=== PATIENT | female | born 1970 | race Caucasian/White ===

== ENCOUNTER → 2022-08-28 | Outpatient (CLI) | payer OTHER ==
[~2022-08-28] MED LIST: BACLOFEN20 M1 PO; BACTROBAN OINT22 GM PO; DARVOCET N 1001 TAB PO; DAYPRO600 M1 PO; KEFLEX500 MG PO; LEADER NATUR1000 MCG PO; LEVETIRACETAM500 MG PO; MACROBID100 M1 PO; Mysoline50 MG PO; NATURE'S BLEND F1 MG PO; VITAMIN D5000 UNI1 PO
== END | disposition home or self-care (01) ==
LOC: US 01:16
PROVIDERS: ATTEND Internal Medicine
DX: N64.4 Mastodynia (principal)

== ENCOUNTER 2023-04-06 11:21 | Emergency (ER) | payer OTHER | END 2023-04-06 12:46 | disposition home or self-care (01) | LOC: ED 11:21 | DX: U07.1 COVID-19 (principal); F32.A Depression, unspecified; Z88.2 Allergy status to sulfonamides; Z88.8 Allergy status to other drugs, medicaments and biological substances; Z98.51 Tubal ligation status ==

== ENCOUNTER 2023-11-30 12:11 | Emergency (ER) | payer OTHER ==
[~2023-11-30] VITALS: Ht 152.4 cm; Wt 65.8 kg
[2023-11-30] MEDS ORDERED: Cyclobenzaprine Hydrochlorid 10 MG TAB PO ONE (13:10)
[2023-11-30 16:13] LABS: BILIRUBIN 2+ (Negative); BLOOD 2+ (Negative); CLARITY Clear (Clear); COLOR Orange (Yellow); GLUCOSE Negative (Negative); KETONE 3+ (Negative); LEUKO ESTERASE Trace (Negative); NITRITE Positive (Negative); PH 5.5 (4.5-8.0); SPECIFIC GRAVITY >= 1.030 (1.001-1.030)
[2023-11-30 16:26] LABS: BACTERIA 2+; EPITHELIAL CELLS 0-2; RBC 16-20 rbc/hpf (0-2)
[2023-11-30] MEDS ORDERED: CYCLOBENZAPRINE5 M3 PO (16:35)
[2023-11-30] MEDS ORDERED: CIPRO500 MG PO (16:35)
== END 2023-11-30 17:04 | disposition home or self-care (01) ==
LOC: ED 12:11
PROVIDERS: Internal Medicine
DX: N39.0 Urinary tract infection, site not specified (principal); M62.838 Other muscle spasm; F32.A Depression, unspecified; Z88.2 Allergy status to sulfonamides; Z88.8 Allergy status to other drugs, medicaments and biological substances; Z98.51 Tubal ligation status; Z53.29 Procedure and treatment not carried out because of patient's decision for other reasons

== ENCOUNTER 2025-01-01 19:55 | Emergency (ER) | payer OTHER ==
[~2025-01-01 19:55] MED LIST changes: +CIPRO500 MG PO; +CYCLOBENZAPRINE5 M3 PO
[2025-01-01 20:25] LABS: BASO # 0.0 10*3/uL (0.0-0.1); BASO % 0.4 % (0.0-1.0); EOS # 0.2 10*3/uL (0.0-0.4); EOS % 2.3 % (1.0-4.0); MEAN CELL VOLUME 87.9 fl (81.0-99.0); MEAN CORPUSCULAR HGB 27.5 pg (27.0-31.0); MEAN PLATELET VOLUME 10.9 fl (9.6-12.3); MONO # 0.4 10*3/uL (0.1-1.0); MONO % 6.1 % (3.0-9.0); NEUT # 4.9 10*3/uL (2.3-7.9); NEUT % 69.3 % (47.0-73.0); NUCLEATED RED BLOOD CELL 0.0 % (0.0-0.0); NUCLEATED RED BLOOD CELL 0.0 10*3/uL (0.0-0.0); PLATELET COUNT AUTOMATED 226 10*3/uL (130-400); RED CELL DISTRI WIDTH 14.6 % (0-14.5)
[2025-01-01 20:49] LABS: BUN 11 mg/dl (9-23)
[2025-01-01 21:09] LABS: BILIRUBIN Negative (Negative); BLOOD Negative (Negative); CLARITY Clear (Clear); COLOR Yellow (Yellow); KETONE Trace (Negative); LEUKO ESTERASE Negative (Negative); NITRITE Negative (Negative); PH 6.5 (4.5-8.0); SPECIFIC GRAVITY 1.020 (1.001-1.030); UROBILINOGEN 1.0 E.U./dl (0.0-1.0)
[2025-01-01 21:33] LABS: WBC 0-2 wbc/hpf (0-5)
== END 2025-01-01 22:15 | disposition home or self-care (01) ==
LOC: ED 19:55
PROVIDERS: Internal Medicine
DX: S31.000A Unspecified open wound of lower back and pelvis without penetration into retroperitoneum, initial encounter (principal); F32.A Depression, unspecified; Z88.2 Allergy status to sulfonamides; Z88.8 Allergy status to other drugs, medicaments and biological substances; X58.XXXA Exposure to other specified factors, initial encounter; Y93.89 Activity, other specified; Y92.89 Other specified places as the place of occurrence of the external cause; Y99.8 Other external cause status

== ENCOUNTER 2025-02-07 21:15 | Emergency (ER) | payer OTHER ==
[~2025-02-07] VITALS: Ht 157.4 cm; Wt 75.9 kg
[2025-02-07 21:33] LABS: BASO # 0.1 10*3/uL (0.0-0.1); BASO % 0.7 % (0.0-1.0); EOS # 0.2 10*3/uL (0.0-0.4); EOS % 1.9 % (1.0-4.0); MEAN CELL VOLUME 89.6 fl (81.0-99.0); MEAN CORPUSCULAR HGB 27.8 pg (27.0-31.0); MEAN PLATELET VOLUME 10.9 fl (9.6-12.3); MONO # 0.5 10*3/uL (0.1-1.0); MONO % 5.6 % (3.0-9.0); NEUT # 5.9 10*3/uL (2.3-7.9); NEUT % 67.1 % (47.0-73.0); NUCLEATED RED BLOOD CELL 0.0 % (0.0-0.0); NUCLEATED RED BLOOD CELL 0.0 10*3/uL (0.0-0.0); PLATELET COUNT AUTOMATED 233 10*3/uL (130-400); RED CELL DISTRI WIDTH 14.5 % (0-14.5)
[2025-02-07 21:55] LABS: BUN 10 mg/dl (9-23)
== END 2025-02-07 22:56 | disposition home or self-care (01) ==
LOC: ED 21:15
PROVIDERS: Nurse Practitioner Family
DX: R51.9 Headache, unspecified (principal); F32.A Depression, unspecified; Z88.8 Allergy status to other drugs, medicaments and biological substances; Z88.2 Allergy status to sulfonamides